=== PATIENT | female | born 1970 | race African-American/Black ===

== ENCOUNTER 2016-08-08 08:38 | Day surgery (SDC) | payer BC ==
[~2016-08-08] VITALS: Ht 129.5 cm; Wt 60.8 kg
[~2016-08-08 08:38] MED LIST: ATOR10TA PO; BUPIVAC MPF-EPI 0.5%-1:200000 30 ML VIAL. ONE; CEFOXITIN SODIUM 2 GM in IV NORMAL SALINE 100ML 100 ML IV PRN; DIPH25CA58 PO; GABA-586 PO; GELATIN SPONGE SIZE 100. ONE; GELATIN SPONGE SIZE 12-7MM SPONGE. ONE; HYDR-971 PO; IBUP-1060 PO; MELO-150 PO; NASAL SPRAY IH; OMEP1CAP24 PO; ONDA4TAB10 SL; OXYC-323 PO; SENN-37 PO
[2016-08-08] MEDS ORDERED: MORPHINE SULFATE 2 MG/ML DISP.SYRIN. IV PRN (08:45)
[2016-08-08] MEDS ORDERED: LIDOCAINE 1% 1 ML SYRINGE. ID PRN (08:45)
[2016-08-08] MEDS ORDERED: FENTANYL PF 100 MCG/2 ML VIAL. IV PRN (08:45)
[2016-08-08] MEDS ORDERED: PROCHLORPERAZINE 10 MG/2 ML VIAL. IV PRN (08:45)
[2016-08-08] MEDS ORDERED: ONDANSETRON PF 4 MG/2 ML VIAL. IV PRN (08:45)
[2016-08-08] MEDS ORDERED: HYDROMORPHONE 2 MG/ML VIAL. IV PRN (08:45)
[2016-08-08] MEDS ORDERED: IV RINGERS,LACTATED 1000ML 1,000 ML IV SCH (09:00)
[2016-08-08] MEDS ORDERED: FENTANYL PF 100 MCG/2 ML VIAL. ONE (10:28)
[2016-08-08] MEDS ORDERED: SEVOFLURANE 61 TO 120 MINUTES. IH ONE (10:28)
[2016-08-08] MEDS ORDERED: MIDAZOLAM HCL 2 MG/2 ML VIAL. ONE (10:28)
[2016-08-08] MEDS ORDERED: ONDANSETRON PF 4 MG/2 ML VIAL. ONE (10:29)
[2016-08-08] MEDS ORDERED: PROPOFOL 20 ML IV ONE (10:29)
[2016-08-08] MEDS ORDERED: DEXAMETHASONE SOD PHOS 20 MG/5 ML VIAL. ONE (10:29)
[2016-08-08] MEDS ORDERED: LIDOCAINE 2% 100 MG/5 ML DISP.SYRIN. ONE (10:29)
[2016-08-08 10:30] LABS: NEG OBC UR NEG; POS OBC UR POS
[2016-08-08] MEDS ORDERED: PHENYLEPHRINE in 0.9% NACL PF 1 MG/10 ML DISP.SYRIN. IV ONE (12:09)
[2016-08-08] MEDS ORDERED: HYDR-971 PO (12:25)
[2016-08-08] MEDS ORDERED: ONDA4TAB7 PO (12:25)
--- NOTE | 2016-08-08 12:26 | PDOC ---
BRIEF OPERATIVE NOTE Pre-Op Diagnosis prolapsed internal hemorrhoids. EUA; 2 column int/ext hemorrhoidectomy k primitivo gen ebl 25 ivf 500 iman well to rr stable MEREDITH RENEE MD Aug 08, 2016 12:26
[2016-08-08] MEDS: FENTANYL PF 100 MCG/2 ML VIAL. IV PRN ×2 (12:42→12:56)
[2016-08-08] MEDS ORDERED: HYDROCODONE/APAP 5/325MG TABLET. ONE (12:53)
[2016-08-08] MEDS ORDERED: HYDROCODONE/APAP 5/325MG TABLET. PO ONE (13:00)
[2016-08-08 13:30] VITALS: BP 119/67
--- NOTE | 2016-08-08 20:02 | OP ---
DATE OF SURGERY: 08/08/2016 PREOPERATIVE DIAGNOSIS: Prolapse hemorrhoids. POSTOPERATIVE DIAGNOSIS: Prolapse hemorrhoids. PROCEDURE: 1. Exam under anesthesia. 2. Two colon hemorrhoidectomy including internal and external hemorrhoids of left lateral and right posterior colons, the hemorrhoids were prolapsed. SURGEON: Meredith Renee M.D. ANESTHESIA: General. ESTIMATED BLOOD LOSS: 25 mL. IV FLUIDS: 500 mL. INDICATIONS: The patient is a 46-year-old female with prolapsing hemorrhoids are uncontrolled and she would like to have these surgically addressed. FINDINGS: She had 3 prolapsing colons of internal and external hemorrhoids one was left lateral and one was right posterior. These were resected. PROCEDURE IN DETAIL: After informed consent was obtained, the patient was taken to the operating room and placed in supine position. After adequate induction of general anesthesia, she was placed on the left side in the left lateral decubitus position. She was prepped and draped with her buttocks tapped apart and then she was prepped and draped in sterile fashion. Anal block was performed with local anesthetic. Digital rectal was exam was performed which revealed ____ has expected because of her being under anesthesia, but no other rectal masses or bleeding noted. Speculum was then placed within the anal canal and circumferential view of the anus was undertaken. She had a prolapse internal hemorrhoid extending into an external hemorrhoid on left lateral as well as right posterior position, the left lateral hemorrhoid was much more prominent. Hemorrhoidectomy was performed, first addressed in the left lateral prolapse hemorrhoid. The hemorrhoid was grasped with the space with the DeBakey grasper and then excised with the LigaSure impact. The defect was then oversewn with a 2-0 chromic in a running fashion and the area was hemostatic. Care was taken to avoid injury to the sphincter muscles and to keep the dissection just superficial to the sphincter muscle. At this point, the speculum was then repositioned and the right posterior hemorrhoid complex was then elevated with a DeBakey and excised with a LigaSure impact care was taken to keep the dissection just superficial to the sphincter muscles. The defect was then oversewn with 2-0 chromic in a running fashion. The anus was inspected. It was hemostatic. Care was taken to make sure to approximate the dentate lines upon closure of the mucosa defect. She tolerated the procedure well. There were no apparent complications. She was then transferred in stable condition to the recovery room. MEREDITH RENEE MD DR: SUDHEER/yifan JOB#: [id number] / [id number] MARICHUY Brock APRN
--- NOTE | 2016-08-09 14:28 | PATHOLOGY ---
PATHOLOGY REPORT * * * * * * * * FINAL DIAGNOSIS: A. Segments of skin and anorectal mucosa and underlying fibromuscular tissue, left lateral hemorrhoid: - Rectal mucosal prolapse and fibroepithelial polyp with focal mild phlebectasia and chronic inflammation. B. Skin, right posterior hemorrhoid: - Fibroepithelial polyp with focal mild phlebectasia and chronic inflammation. COMMENT: There is no evidence of malignancy. (JPM:; d/t: 08/09/16) REPORT ELECTRONICALLY SIGNED BY: Drew Gandhi M.D. DATE/TIME: 08/09/2016 14:28 * * * * * * * * GROSS PATHOLOGY: A. Received in formalin labeled "Titus Ovalle, hemorrhoids left lateral," are two segments of mendez-pink epithelial covered tissue ranging from 1.0 x 0.6 x 0.3 to 3.3 x 2.7 x 1.1 cm in maximum dimensions. The epithelial surfaces appear intact, without grossly apparent lesions. Sectioning reveals pink-mendez cut surfaces throughout. [employer] tissue is submitted in cassette A1. B. Received in formalin labeled "Titus Ovalle, right posterior hemorrhoid," is a segment of mendez-pink epithelial covered tissue measuring 1.5 x 1.4 x 1.1 cm in maximum dimensions. The epithelial surfaces appear intact, without grossly apparent lesions. Sectioning reveals pink-mendez, homogenous cut surfaces. [employer] tissue is submitted in cassette B1. (CAA; 08/08/2016) INITIAL CPT CODE(S): A; 64379 B; 94001 Professional services performed [place] [address] Technical services performed by [facility] at [address] [place] [address] [address] [address]. SPECIMEN(S) RECEIVED: A.Left lateral hemorrhoids B.Right posterior hemorrhoids CLINICAL HISTORY: Prolapsed internal hemorrhoids PATIENT: TITUS OVALLE Ketty /AGE: 902/21/1970 (Age: 46) PATIENT #: [id number] ALT CASE #: SPECIMEN COLLECTION DATE: 08/08/2016 SPECIMEN RECEIVED DATE: 08/08/2016 [facility] - [address] [place] [address] - PHONE: [phone] * * * END OF REPORT * * *
== END 2016-08-08 13:46 | disposition home or self-care (01) ==
LOC: SURG 08:38
PROVIDERS: ATTEND Surgery
DX: K64.8 Other hemorrhoids (principal); K64.4 Residual hemorrhoidal skin tags; E78.00 Pure hypercholesterolemia, unspecified; K21.9 Gastro-esophageal reflux disease without esophagitis; F10.99 Alcohol use, unspecified with unspecified alcohol-induced disorder; Z87.891 Personal history of nicotine dependence
CPT/HCPCS: 46260; 81025; A4215; J1100; J2250; J2270; J2370; J2405; J2704; J3010; J3490; J7120; 88304

== ENCOUNTER → 2018-03-18 | Outpatient (CLI) | payer BC ==
[~2018-03-18] MED LIST changes: -BUPIVAC MPF-EPI 0.5%-1:200000 30 ML VIAL. ONE; -CEFOXITIN SODIUM 2 GM in IV NORMAL SALINE 100ML 100 ML IV PRN; -GELATIN SPONGE SIZE 100. ONE; -GELATIN SPONGE SIZE 12-7MM SPONGE. ONE; -MELO-150 PO; +MELO15TA23 PO; +ONDA4TAB7 PO
--- NOTE | 2018-03-18 14:57 | KCIC ---
EXAM: AP pelvis, AP frog lateral views of the right hip DATE: 03/18/2018 12:00 AM INDICATION: COMPARISON: No Prior FINDINGS: No evidence of acute fracture or dislocation. Hip joint spaces are grossly preserved although there are small right marginal femoral head/neck junction osteophytes. Moderate colonic stool content is seen overlying the sacrum. IMPRESSION: No evidence of acute fracture or dislocation. Right hip joint arthritis with small associated osteophytes. No joint space narrowing. Electronically signed by: Uvaldo Quintana MD (03/18/2018 2:54 PM) [facility]
--- NOTE | 2018-03-18 15:44 | KCIC ---
History: Routine screening. Technique: Bilateral digital mammographic routine views were obtained with CAD - computer aided detection. Comparison: None. Findings: Breast Tissue Density C : The breast tissue is heterogeneously dense. Scattered fibroglandular elements may obscure underlying pathology. There are no suspicious masses, microcalcifications or areas of architectural distortion. Impression: No suspicious findings. BI-RADS Category 1: Negative. Normal interval followup. Your mammogram demonstrates that you have dense breast tissue, which could hide abnormalities, and if you have other risk factors for breast cancer that have been identified, you might benefit from supplemental screening tests that may be suggested by your ordering physician. Dense breast tissue, in and of itself, is a relatively common condition. This information is not provided to cause undue concern, but rather to raise your awareness and to promote discussion with your physician regarding the presence of other risk factors, in addition to dense breast tissue. A report of your mammography results will be sent to you and your physician. You should contact your physician if you have any questions or concerns regarding this report. A mammogram does not have 100% sensitivity and therefore a negative imaging study should not delay further work up of a suspicious abnormality. The patient will receive a letter with the results in the mail. Patient information is entered into the reminder system with a target due date for the next screening mammogram. The patient will receive a reminder. "Our facility is accredited by the [employer] Mammography Program." Electronically signed by: Mahendra Medina III, MD (03/18/2018 3:41 PM) [email or web address]
== END | disposition home or self-care (01) ==
LOC: KCIC 10:29
PROVIDERS: ATTEND Nurse Practitioner Family
DX: Z12.31 Encounter for screening mammogram for malignant neoplasm of breast (principal); M16.11 Unilateral primary osteoarthritis, right hip; M85.851 Other specified disorders of bone density and structure, right thigh
CPT/HCPCS: 73502; 77067

== ENCOUNTER → 2018-10-15 | Outpatient (CLI) | payer BC ==
[~2018-10-15] MED LIST changes: -GABA-586 PO; +GABA300C18 PO; +HYDR-3164 PO; -HYDR-971 PO; -OXYC-323 PO; +OXYC1TAB15 PO
--- NOTE | 2018-10-15 13:27 | KCIC ---
EXAM: Bilateral hands, 3 views. HISTORY: Pain. COMPARISON: None. FINDINGS: 3 views of both hands are obtained. There is no fracture, dislocation or subluxation. The alignment and joint spaces are unremarkable. IMPRESSION: No acute osseous finding. Electronically signed by: Sis Alva MD (10/15/2018 1:25 PM) [facility]
--- NOTE | 2018-10-15 13:49 | KCIC ---
FOOT LEFT 3V, FOOT RIGHT 3V History: Joint pain and swelling for about one year Comparison: None. Findings: Left foot: 3 views of the left foot are submitted. No acute fracture or dislocation is identified. There is a small plantar calcaneal enthesophyte. No significant bone destruction is identified. Joint spaces are maintained. Right foot: 3 views of the right foot are submitted. No acute fracture or dislocation or aggressive bone destruction is identified. There is a tiny plantar calcaneal enthesophyte. Impression: 1. There are small plantar calcaneal enthesophytes greater on the left. Electronically signed by: Von Najera MD (10/15/2018 1:46 PM) [facility]
== END | disposition home or self-care (01) ==
LOC: KCIC 12:27
PROVIDERS: ATTEND Nurse Practitioner Family
DX: M77.32 Calcaneal spur, left foot (principal); M77.31 Calcaneal spur, right foot
CPT/HCPCS: 73130; 73630

== ENCOUNTER → 2020-07-18 | Outpatient (CLI) | payer BC, OTHER ==
--- NOTE | 2020-07-18 16:53 | KCIC ---
BILATERAL SCREENING MAMMOGRAM, 3-D History: Routine screening. Comparison: Bilateral mammogram March 18, 2018. Technique: MLO and CC digital tomosynthesis (3D) images obtained. Radiologist reviewed these images on dedicated workstation. Findings: Breast Tissue Density B : There are scattered areas of fibroglandular density. There are no dominant masses, suspicious microcalcifications or architectural distortion. IMPRESSION: No mammographic evidence of malignancy. Recommend routine screening. BI-RADS category 1: Negative. The images were reviewed with computer-aided detection. Patient information is entered into reminder system with a target due date for the next screening [facility]. Mammography is the most sensitive method for finding small breast cancers, but it does not detect the m all and is not a substitute for careful clinical examination. A negative mammogram does not negate a clinically suspicious finding and should not result in delay in biopsying a clinically suspicious a bnormality. "Our facility is accredited by the [employer] Mammography Program." Electronically signed by: Shane Templeton MD (07/18/2020 4:51 PM) [email or web address]
== END ==
LOC: KCIC MAMMO 09:57
PROVIDERS: ATTEND Nurse Practitioner Family
DX: Z12.31 Encounter for screening mammogram for malignant neoplasm of breast (principal)
CPT/HCPCS: 77063; 77067